=== PATIENT | male | born 1960 | race Caucasian/White ===

== ENCOUNTER 2024-02-08 10:50 | Day surgery (SDC) | payer BC ==
[2024-02-07 13:23] VITALS: BMI 30.7
[2024-02-08 11:09] VITALS: TEMP 97.3
[2024-02-08] MEDS: IV FLUID CONTINUATION 1,000 ML IV ONE (11:12)
[2024-02-08] MEDS: LACTATED RINGERS 1,000 ML IV SCH (11:21)
[2024-02-08] MEDS ORDERED: LIDOCAINE 1% INJ 10MG/ML (20 ML MDV) ONE (12:06)
[2024-02-08] MEDS ORDERED: PROPOFOL 10 MG/ML 20 ML VIAL IV ONE (12:06)
--- NOTE | 2024-02-08 12:30 | P.PCN ---
Date of Procedure: 02/08/24 Procedure(s) Performed: Brief history: Patient is a pleasant 63-year-old white male scheduled for an elective upper endoscopy as well as colonoscopy as a part of evaluation of intermittent dysphagia to solids for the last 6 months duration and longstanding history of GERD. He scheduled for a colonoscopy as part of screening for colorectal neoplasia Procedure performed: Esophagogastroduodenoscopy with dilation Colonoscopy Preoperative diagnosis: Intermittent dysphagia to solids Screening for colon cancer Anesthesia: MAC Procedure: After informed consent was obtained from the patient was brought into the endoscopy unit and IV sedation was administered by anesthesia under continuous monitoring. Initially upper endoscopy was done. The Olympus GF 160 video endoscope was inserted inserted into the mouth and esophagus intubated without any difficulty and was gradually advanced into the stomach and duodenum and carefully examined. The bulb and second part of the duodenum appeared normal. The scope was then withdrawn into the stomach adequately insufflated with air and upon careful examination the antrum and body, cardia and fundus appeared normal. The scope was then withdrawn into the esophagus. The GE junction was located at 40 cm to the incisors. It appeared regular with no erythema erosions or ulcerations. Rest of the esophagus appeared normal. Patient tolerated the procedure well. At this time the patient continued to remain sedation. Initial digital rectal examination was normal. Olympus CF 160 video colonoscope was then inserted into the rectum and gradually advanced to the cecum without any difficulty. Careful examination was performed as the scope was gradually being withdrawn. The prep was excellent. The cecum, ascending colon, transverse colon, descending colon, sigmoid colon and rectum appeared normal. Diverticulosis noted. Retroflexion was performed in the rectum and no lesions were noted. Patient tolerated the procedure well. Impression: 1. Upper endoscopy revealed small hiatal hernia and distal esophageal stricture status post balloon dilation using 20 mm TTS balloon as described above 2. Colonoscopy revealed diffuse diverticulosis more prone to the left colon Recommendations: Findings of this examination were discussed with the patient as well as his family. He was advised to be on a clear liquid diet for 2 hours. Resume omeprazole 20 mg daily and follow antireflux measures. Recommended repeat screening colonoscopy in 10 years
[2024-02-08 12:58] VITALS: BP 125/84; PULSE 95; RESP 18
== END 2024-02-08 13:39 | disposition home or self-care (01) ==
LOC: ORWHC2ENDO 10:50
PROVIDERS: ATTEND Internal Medicine Gastroenterology
DX: Z12.11 Encounter for screening for malignant neoplasm of colon (principal); K57.30 Diverticulosis of large intestine without perforation or abscess without bleeding; K22.2 Esophageal obstruction; K44.9 Diaphragmatic hernia without obstruction or gangrene; K21.9 Gastro-esophageal reflux disease without esophagitis; I10 Essential (primary) hypertension; Z79.899 Other long term (current) drug therapy; Z86.0100 Personal history of colon polyps, unspecified
CPT/HCPCS: 45378; 43249; J2003; J2704